=== PATIENT | male | born 1980 | race Caucasian/White ===

== ENCOUNTER 2017-03-28 05:45 | Emergency (ER) | payer BC ==
[2017-03-28] MEDS ORDERED: Cyclobenzaprine 10 MG Tab PO ONE (06:07)
[2017-03-28] MEDS ORDERED: Ketorolac 60 MG/2 ML SDV IM ONE (06:07)
[2017-03-28] MEDS ORDERED: Ondansetron 4 MG Tab.DIS PO ONE (06:07)
[2017-03-28] MEDS ORDERED: HYDROmorphone 1 MG/ML Syringe IM ONE (06:07)
--- NOTE | 2017-03-28 06:14 | EDM.PDOC ---
ED HPI GENERAL MEDICAL PROBLEM - General Chief Complaint: General Stated Complaint: back pain Time Seen by Provider: 03/28/17 05:51 Source of Information: Reports: Patient History Limitations: Reports: No Limitations - History of Present Illness INITIAL COMMENTS - FREE TEXT/NARRATIVE: This patient is a 37 year old male that presents to the ER. Patient report that on Tuesday he went to Chiropractor because his ower back was out. Patient reports then on Tuesday he started having right lower back pain that is stabbing burning in nature that radiates down the right leg. Patient reports that movmeent with standing, bending, twisting, rotating of the trunk, stooping makes his hurley worse. Patient denies a specific injury. Patient deneis n, v, d, f , urinary/bowel changes, hematuria, urinary/bowel incontinence. He denies numbness/tingling sensation around the rectum to indicate saddle parathesia. Pulses +2, cap refill < 2sec, sensory,motor function intact. Neurovascular intact. Onset Date: 03/26/17 Duration: Day(s): (2), Constant Location: Reports: Back Quality: Reports: Burning, Stabbing Severity: Moderate Improves with: Reports: None Worsens with: Reports: Movement Associated Symptoms: Denies: Confusion, Chest Pain, Cough, cough w sputum, Diaphoresis, Fever/Chills, Headaches, Loss of Appetite, Malaise, Nausea/Vomiting , Rash, Seizure, Shortness of Breath, Syncope, Weakness Treatments [employer]: Reports: Acetaminophen, NSAIDS Right Back Pain Score (Numeric/FACES): 10 - Related Data Allergies Allergy/AdvReac Type Severity Reaction Status Date / Time lisinopril Allergy Other Verified 03/28/17 05:47 Home Meds: Home Meds Aspirin [Low Dose Aspirin EC] 81 mg PO DAILY 01/02/16 [History] Atenolol/Chlorthalidone [Atenolol-Chlorthalidone 100-25] 100 mg PO DAILY [History] Esomeprazole Magnesium 40 mg PO DAILY 01/02/16 [History] Febuxostat [Uloric] 40 mg PO DAILY 01/02/16 [History] Magnesium Oxide [Magnesium] 500 mg PO DAILY 01/02/16 [History] ED ROS GENERAL - Review of Systems Review Of Systems: See Below Constitutional: Reports: No Symptoms HEENT: Reports: No Symptoms Respiratory: Reports: No Symptoms Cardiovascular: Reports: No Symptoms Endocrine: Reports: No Symptoms GI/Abdominal: Reports: No Symptoms : Reports: No Symptoms Musculoskeletal: Reports: Back Pain (right lower), Leg Pain (right) Skin: Reports: No Symptoms Neurological: Reports: No Symptoms Psychiatric: Reports: No Symptoms Hematologic/Lymphatic: Reports: No Symptoms Immunologic: Reports: No Symptoms ED EXAM, GENERAL - Physical Exam Exam: See Below Exam Limited By: No Limitations General Appearance: Alert, WD/WN, No Apparent Distress Eye Exam: Bilateral Eye: Normal Inspection, PERRL Ears: Normal External Exam, Normal Canal, Hearing Grossly Normal, Normal TMs Ear Exam: Bilateral Ear: Auricle Normal, Canal Normal, TM normal Nose: Normal Inspection, Normal Mucosa, No Blood Throat/Mouth: Normal Inspection, Normal Lips, Normal Teeth, Normal Gums, Normal Oropharynx, Normal Voice, No Airway Compromise Head: Atraumatic, Normocephalic Neck: Normal Inspection, Supple, Non-Tender, Full Range of Motion Respiratory/Chest: No Respiratory Distress, Lungs Clear, Normal Breath Sounds, No Accessory Muscle Use Cardiovascular: Normal Peripheral Pulses, Regular Rate, Rhythm, No Edema, No Gallop, No JVD, No Murmur, No Rub Peripheral Pulses: 2+: Posterior Tibial (L), Posterior Tibial (R) GI/Abdominal: Soft, Non-Tender Back Exam: Normal Inspection, Decreased Range of Motion (due to pain. With bending, twisting, stooping.), Paraspinal Tenderness (right lumbar). No: CVA Tenderness (L), CVA Tenderness (R), Muscle Spasm, Vertebral Tenderness Extremities: Normal Inspection, Normal Range of Motion, Non-Tender, No Pedal Edema, Normal Capillary Refill Neurological: Alert, Oriented, CN II-XII Intact, Normal Cognition, Normal Gait, No Motor/Sensory Deficits Psychiatric: Normal Affect, Normal Mood Skin Exam: Warm, Dry, Intact, Normal Color, No Rash Lymphatic: No Adenopathy Course - Orders/Labs/Meds Meds: Medications Discontinued Medications Generic Name Dose Route Start Last Admin Trade Name Freq PRN Reason Stop Dose Admin Cyclobenzaprine HCl 10 mg 03/28/17 06:07 03/28/17 06:17 Flexeril PO 03/28/17 06:08 10 mg ONETIME ONE Administration Hydromorphone HCl 1 mg 03/28/17 06:07 03/28/17 06:18 Dilaudid IM 03/28/17 06:08 1 mg ONETIME ONE Administration Ketorolac Tromethamine 60 mg 03/28/17 06:07 03/28/17 06:18 Toradol IM 03/28/17 06:08 60 mg ONETIME ONE Administration Methylprednisolone Sodium Succinate 125 mg 03/28/17 06:18 Solu-Medrol IM 03/28/17 06:19 NOW STA Ondansetron HCl 4 mg 03/28/17 06:07 03/28/17 06:18 Zofran Odt PO 03/28/17 06:08 4 mg ONETIME ONE Administration - Re-Assessments/Exams Free Text/Narrative Re-Assessment/Exam: 03/28/17 06:31 Patient does report his pain is improving a little. Will discharge. Ambulatory. Departure - Departure Time of Disposition: 06:14 Disposition: Home, Self-Care 01 Condition: Good Clinical Impression: Sciatica of right side - Discharge Information Instructions: Sciatica, [id number] Referrals: Judah Palma MD [Primary Care Provider] - Forms: ED Department Discharge Additional Instructions: Followup with your primary care provider Return to the ER for worsening of condition or any emergent concerns Rest Ice to painful area No lifting greater than 10lbs for 3 days [place] 5/325mg 1-2 pills every 4-6 hours as needed for pain #15 no refill Flexeril 10mg 1 pill three times a day as needed for muscle spasm #15 no refill Prednisone 20mg 1 pill twice a day for 5 days #10 no refill May take over the counter Motrin 800mg every 8 hours as needed for pain and swelling - Assessment/Plan Plan: PLEASE SEE RN NOTE FOR PFSH.
[2017-03-28] MEDS ORDERED: methylPREDNISolone Sodium Succinate 125 MG/2 ML SDV IM STA (06:18)
[2017-03-28 06:33] VITALS: BP 158/73
== END 2017-03-28 06:50 | disposition home or self-care (01) ==
LOC: CC.ED 05:45
DX: M54.41 Lumbago with sciatica, right side (principal); Z79.82 Long term (current) use of aspirin; Z79.899 Other long term (current) drug therapy; Z88.8 Allergy status to other drugs, medicaments and biological substances
CPT/HCPCS: 96372; 99283; A9270; J1170; J1885; J2930

== ENCOUNTER 2017-04-09 07:43 | Emergency (ER) | payer BC ==
[2017-04-09 07:50] VITALS: BP 158/109
[2017-04-09] MEDS ORDERED: Ketorolac 60 MG/2 ML SDV IM ONE (08:20)
--- NOTE | 2017-04-09 08:56 | EDM.PDOC ---
ED HPI GENERAL MEDICAL PROBLEM - General Chief Complaint: Back Pain or Injury Stated Complaint: back pain Time Seen by Provider: 04/09/17 08:13 Source of Information: Reports: Patient History Limitations: Reports: No Limitations - History of Present Illness INITIAL COMMENTS - FREE TEXT/NARRATIVE: Patient presents with complaints of severe low back pain. Apparently has been suffering with this for about 3 weeks now. Does not recall or an injury or specific event that triggered this. Has been seeing Dr. Palma and Baldomero Alexis for this. Had xrays, has had an SI joint injection, seen PT but states couldn' t tolerate that. He has been taking [place], Toradol, Flexeril and is currently on a course of methlyprednisolone. He states nothing seems to be helping. Is currently waiting for an open MRI as he was unable to have one here due to his size. He is currently wearing a back brace which he states keeps his leg from hurting more. Does feel pain in the right lower back the most with radiation down his right leg. Duration: Week(s):, Waxing/Waning Location: Reports: Back Quality: Reports: Sharp, Throbbing Severity: Severe Improves with: Reports: Rest Worsens with: Reports: Movement (states walking and sitting are the worst) Associated Symptoms: Reports: No Other Symptoms Treatments [employer]: Reports: Other Medication(s) Right Lower Back Pain Score (Numeric/FACES): 10 - Related Data Allergies Allergy/AdvReac Type Severity Reaction Status Date / Time lisinopril Allergy Other Verified 04/09/17 07:50 Home Meds: Home Meds Aspirin [Low Dose Aspirin EC] 81 mg PO DAILY 01/02/16 [History] Atenolol/Chlorthalidone [Atenolol-Chlorthalidone 100-25] 100 mg PO DAILY [History] Esomeprazole Magnesium 40 mg PO DAILY 01/02/16 [History] Magnesium Oxide [Magnesium] 500 mg PO DAILY 01/02/16 [History] Cyclobenzaprine [Flexeril] 1 tab PO Q6HR PRN 04/09/17 [History] Hydrocodone/Acetaminophen [Hydrocodon-Acetaminophen 5-325] 1 tab PO Q4HR PRN 06/25 [History] Ketorolac [Toradol] 1 tab PO Q6HR PRN 04/09/17 [History] methylPREDNISolone [Medrol] 4 mg PO DAILY 04/09/17 [History] Past Medical History - Past Health History Medical/Surgical History: Denies Medical/Surgical History Social & Family History - Family History Family Medical History: Noncontributory - Tobacco Use Smoking Status *Q: Current Every Day Smoker Years of Tobacco use: 20 Packs/Tins Daily: 1 - Caffeine Use Caffeine Use: Reports: Soda - Recreational Drug Use Recreational Drug Use: No ED ROS GENERAL - Review of Systems Review Of Systems: ROS reveals no pertinent complaints other than HPI. ED EXAM,LOWER BACK PAIN/INJURY - Physical Exam Exam: See Below Exam Limited By: No Limitations General Appearance: Alert, WD/WN, No Apparent Distress Respiratory/Chest: No Respiratory Distress, Lungs Clear, Normal Breath Sounds Cardiovascular: Regular Rate, Rhythm GI/Abdominal: Normal Bowel Sounds, Soft Back Exam: Normal Inspection, Decreased Range of Motion, Muscle Spasm, Paraspinal Tenderness Extremities: Normal Inspection Neurological: Alert, Normal Mood/Affect Psychiatric: Normal Affect, Normal Mood Course - Vital Signs Last Recorded V/S: Last Vital Signs Temp 96.0 F 04/09/17 07:43 Pulse 74 04/09/17 07:43 Resp 20 04/09/17 07:43 BP 158/109 H 04/09/17 07:43 Pulse Ox 99 04/09/17 07:43 - Orders/Labs/Meds Meds: Medications Discontinued Medications Generic Name Dose Route Start Last Admin Trade Name Freq PRN Reason Stop Dose Admin Ketorolac Tromethamine 60 mg 04/09/17 08:20 04/09/17 08:26 Toradol IM 04/09/17 08:21 60 mg ONETIME ONE Administration Orphenadrine Citrate 60 mg 04/09/17 08:21 04/09/17 08:25 Norflex IM 04/09/17 08:22 60 mg NOW ONE Administration - Re-Assessments/Exams Free Text/Narrative Re-Assessment/Exam: 04/09/17 0855 Patient given injections and states has brought the pain down some. Sent with Rx for Percocet and advised to use for more severe pain in addition to other current meds. Departure - Departure Time of Disposition: 08:54 Disposition: Home, Self-Care 01 Condition: Fair Clinical Impression: Sciatica of right side, Low back pain - Discharge Information Referrals: Judah Palma MD [Primary Care Provider] - Forms: ED Department Discharge Additional Instructions: 1. Rest 2. Ice or heat to back 3. Continue to wear back support 4. Flexeril as directed 5. Toradol as directed 6. Percocet 1-2 tabs every 6 hours as needed for more severe back pain not covered with Toradol 7. Proceed with MRI as planned 8. Contact Dr. Palma for ongoing concerns
== END 2017-04-09 09:02 | disposition home or self-care (01) ==
LOC: CC.ED 07:43
DX: M54.41 Lumbago with sciatica, right side (principal); F17.210 Nicotine dependence, cigarettes, uncomplicated; Z79.899 Other long term (current) drug therapy; Z88.8 Allergy status to other drugs, medicaments and biological substances; Z79.82 Long term (current) use of aspirin
CPT/HCPCS: 96372; 99282; J1885; J2360